=== PATIENT | male | born 1995 | race Caucasian/White ===

== ENCOUNTER 2023-02-01 10:31 | Emergency (ER) | payer OTHER ==
[~2023-02-01] VITALS: Ht 188 cm; Wt 122.7 kg
[2023-02-01 14:40] VITALS: BP 146/92
[2023-02-01] MEDS ORDERED: LIDOCAINE 2%/EPI 1:100,000 inj. Multi-dose 20 ML VIAL IJ ONE (14:50)
[2023-02-01] MEDS ORDERED: bacitracin 15gm ointment TP ONE (14:50)
[2023-02-01] MEDS ORDERED: LIDOcaine 1% 30ml preserv. free vial ONE (15:19)
== END 2023-02-01 16:02 | disposition home or self-care (01) ==
LOC: ER 10:32
DX: S61.411A Laceration without foreign body of right hand, initial encounter (principal); W45.8XXA Other foreign body or object entering through skin, initial encounter; Y93.89 Activity, other specified; Y92.89 Other specified places as the place of occurrence of the external cause; Y99.8 Other external cause status
CPT/HCPCS: 12002; 99282; J3490; A6449